=== PATIENT | female | born 1995 | race Caucasian/White ===

== ENCOUNTER 2020-02-12 00:01 | Inpatient (IN) ==
[2020-02-13] MEDS ORDERED: RINGER'S SOLUTION,LACTATED 1,000 ML IV ONE (00:09)
[2020-02-13] MEDS ORDERED: MISOPROSTOL 100 MCG TABLET VG PRN (00:09)
[2020-02-13] MEDS ORDERED: DEXTROSE 5%-LACTATED RINGERS 1,000 ML IV PRN (00:09)
[2020-02-13] MEDS ORDERED: OXYTOCIN/DEXTROSE 5%-WATER 30 UNITS/500 ML BAG IV ONE ×2 (00:09→13:33)
[2020-02-13] MEDS ORDERED: ONDANSETRON 4 MG TAB.RAPDIS PO PRN (00:09)
[2020-02-13] MEDS ORDERED: PENICILLIN G POTASSIUM 5 MILLIONUNT in DEXTROSE 5 % IN WATER 100 ML IV ONE ×2 (00:09)
[2020-02-13] MEDS ORDERED: CALCIUM CARBONATE 500 MG TAB.CHEW PO ONE (01:27)
[2020-02-13 01:36] LABS: Cocaine Ur Negative (NEGATIVE); Urine Barbiturate Negative (NEGATIVE); Urine Benzodiazepines Negative (NEGATIVE); Urine Opiates Negative (NEGATIVE); Urine PCP Negative (NEGATIVE); Urine THC Negative (NEGATIVE)
[2020-02-13] MEDS: PENICILLIN G POTASSIUM 2.5 MILLIONUNT in DEXTROSE 5 % IN WATER 100 ML IV SCH ×4 (05:10→09:18)
--- NOTE | 2020-02-13 09:09 | HP ---
Chief Complaint - Chief Complaint Date of Service: 02/13/20 Time of Service: 08:50 Chief Complaint: induction of labor History of Present Illness: 24 yo at 39 weeks admitted for induction of labor due to history of shoulder dystocia. This complicated by anemia, migraines, h/o shoulder dystocia (3089g), h/o seizures, and h/o THC use in 1st trimester. 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) last with 3089g baby, no sequelae Seizures Surgical History: Surgical History (Last Reviewed 02/13/20 @ 09:12 by Sunny Zayas DO) Hx of appendectomy Hx of tonsillectomy [place] teeth extracted Family History: Family History (Last Reviewed 02/13/20 @ 09:12 by Sunny Zayas DO) Grandmother Cancer Aunt Cancer breast-great paternal aunt Social History: (Last Reviewed 02/13/20 @ 09:12 by Sunny Zayas DO) Social History: adopted: No Marital status: household members: spouse, significant other number of children: 2 current occupational status: employed current occupation: [employer] Highest education level completed: high school graduate Sexually Active: Yes Service: No Tobacco: Smoking Status: Never smoker Alcohol: alcohol intake: never Substance Use: substance use type: does not use Dietary Habits: caffeine: No Review Of Systems (GEN) - Review of Systems Generalized/Overall Review: Present: No Symptoms Reported EENTM: Present: No Symptoms Reported Respiratory: Present: No Symptoms Reported Cardiac: Present: No Symptoms Reported Abdominal: Present: No Symptoms Reported Genitourinary: Present: No Symptoms Reported Musculoskeletal: Present: No Symptoms Reported Neurological: Present: No Symptoms Reported Skin: Present: No Symptoms Reported Endocrine: Present: No Symptoms Reported Allergies/Adverse Reactions: Allergies Allergy/AdvReac Type Severity Reaction Status Date / Time No Known Allergies Allergy Verified 02/13/20 00:08 Home Medications: HOME MEDICATIONS vitamin no.76-iron,carbonyl 29 mg iron-folic acid 1 mg tablet 1 tab PO DAILY 08/02/19 [Last Taken Unknown] Exam - Exam Vital Signs: Vital Signs - Last Taken Temp 37.1 C 02/13/20 00:48 Pulse 95 02/13/20 00:48 Resp 16 02/13/20 00:48 BP 120/74 02/13/20 00:48 Pulse Ox 98 02/13/20 00:48 Constitutional: Present: Alert, Oriented x3, Cooperative, No distress ENT Exam: Present: hearing grossly normal Neck: Absent: thyromegaly Breasts: Present: Exam deferred Respiratory: Present: lungs clear, no respiratory distress Cardiovascular/Chest: Present: normal peripheral pulses, regular rate, rhythm, no edema Abdomen: Present: soft, nontender, no rebound tenderness, other - gravid /Rectal: Present: Other - Cervix - 2/50/-2 Extremity: Present: no pedal edema, no calf tenderness Skin Exam: Present: normal color, warm/dry, no cyanosis Neurologic: Present: alert, normal mood/affect, oriented x 3 Appearance: Present: appropriate appearance, appropriate insight Eye contact: Present: cooperative, good eye contact Thoughts: Present: normal thought pattern, normal mood /affect Diagnostic Studies: Laboratory Results Urine Opiates Screen Negative (NEGATIVE) 02/13/20 00:51 Barbiturate Screen Negative (NEGATIVE) 02/13/20 00:51 Ur Phencyclidine Scrn Negative (NEGATIVE) 02/13/20 00:51 Urine Amphetamine Negative (NEGATIVE) 02/13/20 00:51 U Benzodiazepines Scrn Negative (NEGATIVE) 02/13/20 00:51 Urine Cocaine Screen Negative (NEGATIVE) 02/13/20 00:51 Urine Marijuana (THC) Negative (NEGATIVE) 02/13/20 00:51 Assessment/Plan - Assessment/Plan (1) History of shoulder dystocia in prior Assessment: Admit for pitocin induction of labor. IV PCN per GBS protocol. Epidural PRN. Problem: Chronic (2) Migraines Problem: Inactive Qualifiers: Migraine type: unspecified Status migrainosus presence: without status migrainosus Intractability: not intractable Qualified Code(s): G43.909 - Migraine, unspecified, not intractable, without status migrainosus (3) Positive GBS test Problem: Acute (4) History of seizures Problem: Inactive (5) History of marijuana use Problem: Inactive
[2020-02-13] MEDS ORDERED: BUTORPHANOL TARTRATE 2 MG/ML VIAL IV PRN (09:12)
--- NOTE | 2020-02-13 09:17 | PN ---
Progess Note - Interim Date: 02/13/20 Time: 08:55 Narrative: 02/13/20 09:16 Patient becoming more uncomfortable with contractions Vital signs stable. Pitocin at 8 mu/min. FHT: 130 baseline, reassuring contractions q 2-3 min Cervix: 3/80/-2, AROM-clear Impression: Intrauterine at 39 weeks induction of labor for history of shoulder dystocia. Plan: Continue present plan. Epidural PRN.
[2020-02-13] MEDS ORDERED: NALOXONE HCL 1 MG/1 ML SYRG IV PRN (09:23)
[2020-02-13] MEDS ORDERED: BUPIVACAINE HCL/0.9 % NACL/PF 250 ML EP PRN (09:23)
[2020-02-13] MEDS ORDERED: ONDANSETRON HCL/PF 2 MG/ML VIAL IV PRN (09:23)
[2020-02-13] MEDS ORDERED: BUPIVACAINE HCL/PF 30 ML VIAL EP SCH (09:30)
--- NOTE | 2020-02-13 10:38 | ANES ---
Anesthesia Pre Procedure Eval Vitals/Labs: Last Vital Signs Temp 37.1 C 02/13/20 00:48 Pulse 95 02/13/20 00:48 Resp 16 02/13/20 00:48 BP 120/74 02/13/20 00:48 Pulse Ox 98 02/13/20 00:48 HOME MEDICATIONS vitamin no.76-iron,carbonyl 29 mg iron-folic acid 1 mg tablet 1 tab PO DAILY 08/02/19 [Last Taken Unknown] Allergies/Adverse Reactions: Allergies Allergy/AdvReac Type Severity Reaction Status Date / Time No Known Allergies Allergy Verified 02/13/20 00:08 - Planned Procedure Planned Procedure: Labor epidural Medication List Reviewed:: Yes Allergies Verified: Yes Medical History (Last Reviewed 02/13/20 @ 10:37 by Darek Gaitan CRNA) Positive GBS test (Acute) Bacterial vaginitis (Acute) History of seizures (Inactive) 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
--- NOTE | 2020-02-13 10:59 | ANES ---
Anesthesia Procedure Note Procedure Note: ANESTHESIA PROCEDURE NOTE Date of Procedure: 02/13/2020. Time of procedure: 1040. Performed by: Darek Gaitan CRNA Hotel Front Desk Clerk: None. Preprocedure diagnosis: Active labor. Post procedure diagnosis: Same. Procedure: Insertion of labor epidural. Indications: The patient is a 24-year-old female in active labor requesting labor epidural for pain management. Findings: See below. Details of the procedure: The patient was placed in a sitting position. DuraPrep as well as Betadine swabs X3 was applied to the patient's back. Patient was then draped in a sterile fashion. Lidocaine 1% was infiltrated to the skin and subcutaneous tissues at the level of the L3-4 interspace. The epidural space was identified using a 18-gauge Tuohy needle with [id number] technique. Epidural catheter was inserted to a depth of 11 centimeters at skin. Negative test dose was elicited using 3 mL of 1.5% preservative-free lidocaine plus epinephrine 1 200,000. The epidural catheter was then taped and secured in place. A loading dose of 8 mL of 0.25% preservative-free bupivacaine was administered to the epidural catheter after negative aspiration for blood and CSF. EBL: Minimal. Fluids: N/A. Specimen: N/A. Post procedure condition: The patient tolerated the procedure well. No complications were noted. Thank you for this consultation. Darek Gaitan CRNA
--- NOTE | 2020-02-13 10:59 | ANES ---
Post Anesthesia Assessment - Vital Signs Vitals: Last Vital Signs Temp 37.1 C 02/13/20 00:48 Pulse 95 02/13/20 00:48 Resp 16 02/13/20 00:48 BP 120/74 02/13/20 00:48 Pulse Ox 98 02/13/20 00:48 Airway Patency: Normal - Mental Status Level Of Consciousness: Awake - N/V Assessment Nausea/Vomiting Presence: None Dehydration:: No
--- NOTE | 2020-02-13 13:32 | OR ---
Operative Report - Dictated Report Narrative: Spontaneous vaginal delivery of vigorously crying viable female at 1310 on 02/13/2020 with Apgars 9 and 9, weighing 3483 g and KEVYN position. Cord clamping delayed approximately 1 minute Placenta delivered complete, intact, with three vessel cord Estimated blood loss: Less than 50 ml Anesthesia: Epidural Lacerations: None History for MU History for Definition: * The number of deliveries resulting in a live the patient experienced prior to current hospitalization * The previous delivery of live twins or any live multiple gestation is considered one live event. *If primagravida or nulliparous is documented select zero for the number of previous live births. Live Events: Live Events: 2
[2020-02-13] MEDS ORDERED: HYDROCORTISONE 30 APPL TUBE TP PRN (13:33)
[2020-02-13] MEDS ORDERED: SENNOSIDES 8.6 MG TABLET PO PRN (13:33)
[2020-02-13] MEDS ORDERED: BENZOCAINE/MENTHOL 81 SPRAY CAN TP PRN (13:33)
[2020-02-13] MEDS ORDERED: IBUPROFEN 800 MG TABLET PO PRN (13:33)
[2020-02-13] MEDS ORDERED: BISACODYL 10 MG SUPP.RECT RC PRN (13:33)
[2020-02-13] MEDS ORDERED: GLYCERIN/WITCH HAZEL LEAF 40 APPL BOX TP PRN (13:33)
[2020-02-13] MEDS: IBUPROFEN 800 MG TABLET PO PRN ×2 (15:09→21:20)
[2020-02-13] MEDS: DOCUSATE SODIUM 100 MG CAPSULE PO SCH (21:20)
[2020-02-14] MEDS: oxyCODONE HCL/ACETAMINOPHEN 1 TAB TABLET PO PRN (00:31)
[2020-02-14] MEDS: IBUPROFEN 800 MG TABLET PO PRN ×2 (06:39→15:18)
[2020-02-14] MEDS: PRENATAL VITS96/IRON FUM/FOLIC 1 TAB TABLET PO SCH (10:44)
[2020-02-14] MEDS: DOCUSATE SODIUM 100 MG CAPSULE PO SCH ×2 (10:55→21:25)
--- NOTE | 2020-02-14 12:49 | PN ---
Subjective - Date and Time Seen Date: 02/14/20 Time: 12:48 Objective - Vitals Vitals: Last Vital Signs Temp 36.6 C 02/14/20 07:00 Pulse 76 02/14/20 07:00 Resp 18 02/14/20 07:00 BP 110/59 02/14/20 07:00 Pulse Ox 98 02/14/20 07:00 Patient denies complaints. Breast-feeding Lochia wnl abdomen - soft, nontender Uterus -firm, at umbilicus - 1 no calf tenderness Impression: day #1 - s/p spontaneous vaginal delivery. Plan: Continue routine care Cauti Physician Documentation - Urinary Catheter Management Urethral ([place]) Date of Insertion: 02/13/20 Time of Insertion: 12:10 Date of Removal: 02/13/20 Time of Removal: 12:55 Assessment/Plan - Problems/Diagnosis (1) History of shoulder dystocia in prior Problem: Chronic (2) Migraines Problem: Inactive Qualifiers: Migraine type: unspecified Status migrainosus presence: without status migrainosus Intractability: not intractable Qualified Code(s): G43.909 - Migraine, unspecified, not intractable, without status migrainosus (3) Positive GBS test Problem: Acute (4) History of seizures Problem: Inactive (5) History of marijuana use Problem: Inactive
[2020-02-15] MEDS: IBUPROFEN 800 MG TABLET PO PRN (01:42)
[2020-02-15] MEDS: oxyCODONE HCL/ACETAMINOPHEN 1 TAB TABLET PO PRN (03:47)
[2020-02-15 07:41] VITALS: BP 110/71
--- NOTE | 2020-02-15 09:31 | PN ---
Subjective - Date and Time Seen Date: 02/15/20 Time: 09:31 Objective - Vitals Vitals: Last Vital Signs Temp 36.6 C 02/15/20 07:40 Pulse 72 02/15/20 07:40 Resp 20 02/15/20 07:40 BP 110/71 02/15/20 07:40 Pulse Ox 99 02/15/20 07:40 Patient denies complaints. Breast-feeding Lochia wnl abdomen - soft, nontender Uterus -firm, at umbilicus - 2 no calf tenderness Impression: day #2 - s/p spontaneous vaginal delivery. Plan: Routine discharge instructions Cauti Physician Documentation - Urinary Catheter Management Urethral ([place]) Date of Insertion: 02/13/20 Time of Insertion: 12:10 Date of Removal: 02/13/20 Time of Removal: 12:55 Assessment/Plan - Problems/Diagnosis (1) History of shoulder dystocia in prior Problem: Chronic (2) Migraines Problem: Inactive Qualifiers: Migraine type: unspecified Status migrainosus presence: without status migrainosus Intractability: not intractable Qualified Code(s): G43.909 - Migraine, unspecified, not intractable, without status migrainosus (3) Positive GBS test Problem: Acute (4) History of seizures Problem: Inactive (5) History of marijuana use Problem: Inactive
[2020-02-15] MEDS: DOCUSATE SODIUM 100 MG CAPSULE PO SCH (09:36)
[2020-02-15] MEDS: PRENATAL VITS96/IRON FUM/FOLIC 1 TAB TABLET PO SCH (09:36)
== END 2020-02-15 12:15 | disposition home or self-care (01) | DRG 806 ==
LOC: OB 02-13 00:01
PROVIDERS: ADMIT Obstetrics & Gynecology; ATTEND Obstetrics & Gynecology
CPT/HCPCS: 59025; 80307